=== PATIENT | female | born 1950 | race Caucasian/White ===

== ENCOUNTER 2018-03-29 08:24 | Outpatient (CLI) | payer BC, MEDICARE ==
--- NOTE | 2018-03-29 20:40 | ULT ---
GALLBLADDER ULTRASOUND: 03/29/18 Ultrasonography of the right upper quadrant was performed. The study was done to investigate abnormal liver function tests. The liver was slightly large measuring 17.3 cm in oblique sagittal length. Internally, no masses, cys ts, or dilated ducts were seen. No focal abnormalities of concern were present. The visible portions of the pancreas appear normal. The gallbladder does have several gallstones within it and the gallbla dder wall is mildly thick at 3 mm. The common bile duct was slightly large at 8 mm in caliber. No bernardino acosta stones were identified. The right kidney was 9.0 cm in long and showed no mass or hydronephrosis. IMPRESSION: 1. Gallstones. 2. Slight hepatic enlargement without focal findings. POS: HOME
== END 2018-03-29 08:25 | disposition home or self-care (01) ==
LOC: BURULT 08:24
PROVIDERS: ATTEND Family Medicine
DX: R94.5 Abnormal results of liver function studies (principal); K80.80 Other cholelithiasis without obstruction; K76.89 Other specified diseases of liver
CPT/HCPCS: 76705